=== PATIENT | female | born 1960 | race Caucasian/White ===

== ENCOUNTER → 2016-10-10 | Outpatient (CLI) | payer BC, MEDICARE ==
[2016-10-10 08:55] LABS: ABSOLUTE BASOPHILS # (AUTO) 0.1 10^3/uL (0.0-0.2); ABSOLUTE EOSINOPHILS # (AUTO) 0.1 10^3/uL (0.0-0.6); ABSOLUTE LYMPHOCYTES (AUTO) 2.2 10^3/uL (0.5-4.7); ABSOLUTE MONOCYTES (AUTO) 0.4 10^3/uL (0.1-1.4); ABSOLUTE NEUT (AUTO) 3.6 10^3/uL (1.7-8.2); EOSINOPHILS % (AUTO) 1.7 % (0-6); HEMATOCRIT 44.3 % (36.0-47.0); HEMOGLOBIN 15.2 g/dL (12.0-15.5); HGB HCT DIFFERENCE 1.3; MEAN CORPUSCULAR HEMOGLOBIN 32.1 pg (27.0-33.4); MEAN CORPUSCULAR HGB CONC 34.3 g/dL (32.0-36.0); MEAN CORPUSCULAR VOLUME 94 fl (80-97); RED BLOOD COUNT 4.73 10^6/uL (3.72-5.28); RED CELL DISTRIBUTION WIDTH 12.7 % (11.5-14.0); SEGMENTED NEUTROPHILS % (AUTO) 56.3 % (42-78); WHITE BLOOD COUNT 6.4 10^3/uL (4.0-10.5)
[2016-10-10 09:40] LABS: ALANINE AMINOTRANSFERASE 27 U/L (9-52); ALBUMIN 4.5 g/dL (3.5-5.0); ALKALINE PHOSPHATASE 49 U/L (38-126); ANION GAP 11 (5-19); ASPARTATE AMINO TRANSFERASE 23 U/L (14-36); BILIRUBIN,DIRECT 0.2 mg/dL (0.0-0.4); BILIRUBIN,TOTAL 0.7 mg/dL (0.2-1.3); BLOOD UREA NITROGEN 21 mg/dL (7-20); CARBON DIOXIDE 27 mmol/L (22-30); CHLORIDE 103 mmol/L (98-107); CREATININE RESULT 0.87 mg/dL (0.52-1.25); GLUCOSE 76 mg/dL (75-110); POTASSIUM 3.9 mmol/L (3.6-5.0); SODIUM 140.9 mmol/L (137-145); TOTAL PROTEIN 7.4 g/dL (6.3-8.2)
== END ==
LOC: OD 08:01
PROVIDERS: ATTEND Internal Medicine Medical Oncology
DX: C50.919 Malignant neoplasm of unspecified site of unspecified female breast (principal)
CPT/HCPCS: 36415; 80053; 85025

== ENCOUNTER → 2017-10-11 | Outpatient (CLI) | payer BC, MEDICARE ==
[2017-10-11 18:02] LABS: ABSOLUTE EOSINOPHILS # (AUTO) 0.1 10^3/uL (0.0-0.6); ABSOLUTE LYMPHOCYTES (AUTO) 3.1 10^3/uL (0.5-4.7); ABSOLUTE MONOCYTES (AUTO) 0.5 10^3/uL (0.1-1.4); ABSOLUTE NEUT (AUTO) 3.9 10^3/uL (1.7-8.2); BASOPHILS % (AUTO) 0.6 % (0-2); EOSINOPHILS % (AUTO) 0.9 % (0-6); HEMATOCRIT 41.7 % (36.0-47.0); HEMOGLOBIN 14.5 g/dL (12.0-15.5); LYMPHOCYTES % (AUTO) 41.2 % (13-45); MEAN CORPUSCULAR HGB CONC 34.7 g/dL (32.0-36.0); MEAN CORPUSCULAR VOLUME 92 fl (80-97); PLATELET COUNT 243 10^3/uL (150-450); RED BLOOD COUNT 4.52 10^6/uL (3.72-5.28); RED CELL DISTRIBUTION WIDTH 13.4 % (11.5-14.0); SEGMENTED NEUTROPHILS % (AUTO) 51.3 % (42-78); TOTAL CELLS COUNTED % (AUTO) 100 %; WHITE BLOOD COUNT 7.5 10^3/uL (4.0-10.5)
[2017-10-11 18:30] LABS: ALANINE AMINOTRANSFERASE 24 U/L (9-52); ALBUMIN 4.3 g/dL (3.5-5.0); ALKALINE PHOSPHATASE 43 U/L (38-126); ANION GAP 12 (5-19); ASPARTATE AMINO TRANSFERASE 22 U/L (14-36); BILIRUBIN,DIRECT 0.2 mg/dL (0.0-0.4); BILIRUBIN,TOTAL 0.4 mg/dL (0.2-1.3); BLOOD UREA NITROGEN 22 mg/dL (7-20); CALCIUM 9.7 mg/dL (8.4-10.2); CARBON DIOXIDE 28 mmol/L (22-30); CHLORIDE 102 mmol/L (98-107); GLUCOSE 82 mg/dL (75-110); POTASSIUM 3.8 mmol/L (3.6-5.0); SODIUM 141.6 mmol/L (137-145)
== END ==
LOC: OD 16:49
PROVIDERS: ATTEND Internal Medicine Medical Oncology
DX: C50.919 Malignant neoplasm of unspecified site of unspecified female breast (principal)
CPT/HCPCS: 36415; 80053; 85025

== ENCOUNTER → 2017-12-17 | Outpatient (CLI) | payer BC, MEDICARE ==
--- NOTE | 2017-12-17 14:37 | RADIOLOGY REPORT (SQ) ---
EXAM DESCRIPTION: FOOT RIGHT COMPLETE COMPLETED DATE/TIME: 12/17/2017 2:10 pm REASON FOR STUDY: STRESS FX COMPARISON: 11/20/2017 NUMBER OF VIEWS: Three views. TECHNIQUE: AP, lateral and oblique radiographic images acquired of the right foot. LIMITATIONS: None. FINDINGS: MINERALIZATION: Normal. BONES: Healing proximal phalanx fracture fourth toe with increasing callus formation. The fracture line is becoming less distinct. Position and alignment are satisfactory. Bipartite tibia sesamoid bone overlies the head of the first metatarsal bone, normal anatomic variant . JOINTS: No effusions. SOFT TISSUES: No soft tissue swelling. No foreign body. OTHER: No other significant finding. IMPRESSION: 1. Healing fracture proximal phalanx fourth toe. TECHNICAL DOCUMENTATION: JOB ID: [id number] [employer]- All Rights Reserved Reading location - IP/workstation name: [email or web address]
== END ==
LOC: OD 13:54
PROVIDERS: ATTEND Podiatrist Foot & Ankle Surgery
DX: M84.377D Stress fracture, right toe(s), subsequent encounter for fracture with routine healing (principal)

== ENCOUNTER → 2018-01-03 | Outpatient (CLI) | payer BC, MEDICARE ==
--- NOTE | 2018-01-03 13:58 | RADIOLOGY REPORT (SQ) ---
EXAM DESCRIPTION: RIBS LEFT W/O PA CHEST COMPLETED DATE/TIME: 01/03/2018 12:52 pm REASON FOR STUDY: PAIN IN LEFT INFRASCAPULAR AREA POSTERIORLY; PAIN WITH BREATHING COMPARISON: None. NUMBER OF VIEWS: Five views. TECHNIQUE: Images acquired of the left ribs in the area of focal concern. LIMITATIONS: None. FINDINGS: RIBS: No acute displaced fracture. No worrisome bone lesions. LUNGS: Limited exam. No obvious pneumothorax. No pleural effusion. OTHER: No other significant finding. IMPRESSION: NO ACUTE DISPLACED RIB FRACTURE. COMMENT: SITE OF TRAUMA/COMPLAINT MARKED/STAMP COMPLETED: YES. TECHNICAL DOCUMENTATION: JOB ID: [id number] [employer]- All Rights Reserved Reading location - IP/workstation name: [email or web address]
--- NOTE | 2018-01-03 14:01 | RADIOLOGY REPORT (SQ) ---
EXAM DESCRIPTION: CHEST PA/LATERAL COMPLETED DATE/TIME: 01/03/2018 12:52 pm REASON FOR STUDY: PAIN IN LEFT INFRASCAPULAR AREA POSTERIORLY; PAIN WITH BREATHING COMPARISON: None. EXAM PARAMETERS: NUMBER OF VIEWS: two views TECHNIQUE: Digital Frontal and Lateral radiographic views of the chest acquired. RADIATION DOSE: NA LIMITATIONS: none FINDINGS: LUNGS AND PLEURA: No opacities, masses or pneumothorax. No pleural effusion. MEDIASTINUM AND HILAR STRUCTURES: No masses or contour abnormalities. HEART AND VASCULAR STRUCTURES: Heart normal size. No evidence for failure. BONES: No acute findings. HARDWARE: None in the chest. OTHER: Right mastectomy. IMPRESSION: NO SIGNIFICANT RADIOGRAPHIC FINDING IN THE CHEST. TECHNICAL DOCUMENTATION: JOB ID: [id number] [employer]- All Rights Reserved Reading location - IP/workstation name: [email or web address]
== END ==
LOC: OD 12:15
PROVIDERS: ATTEND Internal Medicine
DX: R07.1 Chest pain on breathing (principal)
CPT/HCPCS: 71046

== ENCOUNTER 2019-03-03 22:21 | Observation (INO) | payer BC, MEDICARE ==
[2019-03-03] MEDS ORDERED: MORPHINE SULFATE 10 MG/ML INJ IV ONE (22:39)
[2019-03-03] MEDS ORDERED: ONDANSETRON HCL INJ/PF 4 MG/2 ML SDV IV ONE (22:40)
[2019-03-03 22:57] LABS: INTERNATIONAL RATION (INR) 0.92; PROTHROMBIN TIME 12.3 SEC (11.4-15.4)
[2019-03-03 22:58] LABS: PARTIAL THROMBOPLASTIN TIME 24.4 SEC (23.5-35.8)
[2019-03-03] MEDS ORDERED: NORMAL SALINE 500 ML IV ONE (22:58)
[2019-03-03 22:59] LABS: ABSOLUTE LYMPHOCYTES (AUTO) 0.7 10^3/uL (0.5-4.7); ABSOLUTE MONOCYTES (AUTO) 0.4 10^3/uL (0.1-1.4); ABSOLUTE NEUT (AUTO) 2.4 10^3/uL (1.7-8.2); BASOPHILS % (AUTO) 0.8 % (0-2); EOSINOPHILS % (AUTO) 1.2 % (0-6); HEMATOCRIT 32.9 % (36.0-47.0); HEMOGLOBIN 11.6 g/dL (12.0-15.5); LYMPHOCYTES % (AUTO) 18.6 % (13-45); MEAN CORPUSCULAR HEMOGLOBIN 34.3 pg (27.0-33.4); MEAN CORPUSCULAR HGB CONC 35.3 g/dL (32.0-36.0); MEAN CORPUSCULAR VOLUME 97 fl (80-97); MONOCYTES % (AUTO) 10.3 % (3-13); PLATELET COUNT 166 10^3/uL (150-450); RED BLOOD COUNT 3.39 10^6/uL (3.72-5.28); SEGMENTED NEUTROPHILS % (AUTO) 69.1 % (42-78); TOTAL CELLS COUNTED % (AUTO) 100 %; WHITE BLOOD COUNT 3.5 10^3/uL (4.0-10.5)
[2019-03-03 23:07] LABS: ALBUMIN 3.9 g/dL (3.5-5.0); ALKALINE PHOSPHATASE 43 U/L (38-126); ANION GAP 9 (5-19); ASPARTATE AMINO TRANSFERASE 21 U/L (14-36); BILIRUBIN,DIRECT 0.1 mg/dL (0.0-0.4); BILIRUBIN,TOTAL 0.3 mg/dL (0.2-1.3); BLOOD UREA NITROGEN 25 mg/dL (7-20); CALCIUM 9.2 mg/dL (8.4-10.2); CARBON DIOXIDE 30 mmol/L (22-30); CHLORIDE 98 mmol/L (98-107); GLUCOSE 118 mg/dL (75-110); POTASSIUM 3.6 mmol/L (3.6-5.0); TOTAL PROTEIN 6.8 g/dL (6.3-8.2)
--- NOTE | 2019-03-03 23:11 | ER Document Report ---
ED General - General Chief Complaint: Nose Bleed Stated Complaint: NOSEBLEED Time Seen by Provider: 03/03/19 22:37 Primary Care Provider: JULES PRADO MD [Primary Care Provider] - Follow up as needed TRAVEL OUTSIDE OF THE [place] IN LAST 30 DAYS: No - HPI Notes: Patient is a 58-year-old female with a history of stage IV breast cancer, currently on chemotherapy, who presents to the emergency department for evaluation. She is been having frequent nosebleeds, she states has had about 17 nosebleeds in the last week. She is now waiting to see ENT. It was believed that this is because of 1 of her medications, so this was discontinued. The patient is not on any blood thinners. She denies any trauma to the area. She was taking Ibrance, but this was discontinued secondary to her nosebleeds. - Related Data Allergies/Adverse Reactions: Latex, Natural Rubber Allergy (Verified 08/10/15 15:48) acetaminophen [From Percocet] Adverse Reaction (Intermediate, Verified 08/03/15 07:21) oxycodone HCl [From Percocet] Adverse Reaction (Intermediate, Verified 08/03/15 07:21) IV contrast Allergy (Severe, Uncoded 08/12/15 08:42) Anaphylactoid Home Medications: Potassium twice a day, valsartan/HCTZ 160 mg / 12-1/2 mg daily, letrozole 2-1/2 mg daily, multivitamin Past Medical History - General Information source: Patient - Social History Smoking Status: Current Every Day Smoker Family History: Reviewed & Not Pertinent Patient has suicidal ideation: No Patient has homicidal ideation: No - Past Medical History Cardiac Medical History: Reports: Hx Hypertension Denies: Hx Coronary Artery Disease, Hx Heart Attack Pulmonary Medical History: Reports: Hx Pneumonia Denies: Hx Asthma, Hx Bronchitis, Hx COPD Neurological Medical History: Denies: Hx Cerebrovascular Accident, Hx Seizures Malignancy Medical History: Reports: Hx Breast Cancer - Stage IV, with metastasis to the lung and lymph nodes Musculoskeletal Medical History: Denies Hx Arthritis Past Surgical History: Reports: Hx Mastectomy. Denies: Hx Hysterectomy, Hx Pacemaker - Immunizations Hx Diphtheria, Pertussis, Tetanus Vaccination: Yes Hx Pneumococcal Vaccination: 12/16/08 Review of Systems - Review of Systems Constitutional: No symptoms reported EENT: See HPI Cardiovascular: No symptoms reported Respiratory: No symptoms reported Gastrointestinal: No symptoms reported Genitourinary: No symptoms reported Musculoskeletal: No symptoms reported Skin: No symptoms reported Neurological/Psychological: No symptoms reported Physical Exam - Vital signs Vitals: Resp Pulse Ox 19 84 L 03/03/19 22:51 03/03/19 22:51 - Notes Notes: This is a pleasant 58-year-old female who appears her stated age in a mild amount of distress. She has a card dealer holding pressure of her bilateral nostrils. When this is removed, she bleeds from both sides. Head is normocephalic and atraumatic, pupils are equal round, reactive to light. Oral mucosa is moist. There is blood in the posterior pharynx. Heart is regular rate and rhythm, lungs are cautious bilaterally. Abdomen soft, nontender, normoactive bowel sounds. Skin is warm and dry. Course - Re-evaluation Re-evalutation: 03/03/19 23:16 Patient presents to the emergency department for evaluation. Decision was made that she would require Rhino Rocket, posterior length. It was placed on the right, see separate procedure note. She tolerated this well. I did go ahead and administer morphine, there was concerned of the level of discomfort she would have with a second Rhino Rocket. After the administration of the morphi ne, patient appeared to have a vagal response. Her heart rate and blood pressure declined. Her heart rate was in the low 50s, blood pressure of 76 systolic. She was given IV fluids. She was not placed in a supine position as to avoid increasing pressure on her nosebleed. She had an improvement in her blood pressure to 110/94, heart rate in the 60s these. I did get at the second Rhino Rocket, which she tolerated well. A large clot from her posterior pharynx was expressed. Patient is currently stable, we will continue to monitor. 03/03/19 23:45 I went back and reevaluate the patient. She does have a small trickle of blood still in the posterior pharynx. I spoke with Dr. Cárdenas, who agrees that observation is appropriate. Awaiting phone call from medicine. 03/03/19 23:[address] Collins, who accepted the patient. - Vital Signs Vital signs: Temp Pulse Resp BP Pulse Ox 69 17 110/94 H 98 03/03/19 23:04 03/03/19 23:04 03/03/19 23:04 03/03/19 23:04 - Laboratory Result Diagrams: 03/03/19 22:35 03/03/19 22:35 Laboratory results interpreted by me: 03/03/19 03/03/19 22:35 22:35 WBC 3.5 L RBC 3.39 L Hgb 11.6 L Hct 32.9 L MCH 34.3 H RDW 17.0 H BUN 25 H Est GFR (MDRD) Non-Af 55 L Glucose 118 H Procedures - Nosebleed Procedure Bilateral Location: Posterior Supplies used: Rhinorocket Notes: Patient presented to the emergency department for evaluation of bilateral nosebleed. Decision was made to place a Rhino Rocket's bilaterally. The Rhino Rocket was soaked in sterile water, then placed into the right nostril, advanced slowly. The balloon was inflated with 8 cc of air, patient tolerated this well. Several minutes later, bleeding continued on the other side, the procedure was repeated on the left. Patient tolerated this well. Critical Care Note - Critical Care Note Total time excluding time spent on procedures (mins): 20 Discharge - Discharge Clinical Impression: Posterior epistaxis Condition: Stable Disposition: ADMITTED OBSERVATION Admitting Provider: Dennis (Hospitalist) Unit Admitted: Telemetry Referrals: JULES PRADO MD [Primary Care Provider] - Follow up as needed
[2019-03-03] MEDS ORDERED: IPRATROPIUM/ALBUTEROL 0.5-2.5 MG/3 ML AMPUL NEB PRN (23:59)
[2019-03-03] MEDS ORDERED: ONDANSETRON HCL INJ/PF 4 MG/2 ML SDV IV PRN (23:59)
[2019-03-04] MEDS: OXYMETAZOLINE HCL 0.05% NASAL SPRAY 15 ML BOTTLE NASL SCH ×3 (00:36→22:44)
[2019-03-04] MEDS: ACETAMINOPHEN 325 MG TABLET PO PRN ×2 (00:42→10:16)
--- NOTE | 2019-03-04 04:43 | PDOC H&P ---
History of Present Illness Admission Date/PCP: 03/04/19 00:25 JULES PRADO MD Patient complains of: Nosebleed History of Present Illness: ANIKET PITTMAN is a 58 year old female with a past medical history of stage IV breast cancer with mets to lung status post chemotherapy and radiation who presents with recurrent nosebleeds. Patient ports 17 nosebleeds in the last week pending ENT evaluation. She reports her nosebleeds were thought likely secondary to letrozole versus Ibrance. She denies trauma or exceptional Dehumidified air. In the emergency room she is found to have epistasis requiring Afrin, bilateral nasal tamponade and a reduced hemoglobin of 11.7. ENT is consulted recommending observation and evaluation. She is referred to the hospitalist for admission. Past Medical History Cardiac Medical History: Reports: Hypertension Denies: Coronary Artery Disease, Myocardial Infarction Pulmonary Medical History: Reports: Pneumonia Denies: Asthma, Bronchitis, Chronic Obstructive Pulmonary Disease (COPD) EENT Medical History: Reports: Nose - Recent onset of recurrent epistasis Neurological Medical History: Reports: None Denies: Seizures Endocrine Medical History: Reports: None Malignancy Medical History: Reports: Breast Cancer - Stage IV, with metastasis to the lung and lymph nodes GI Medical History: Reports: None Musculoskeltal Medical History: Denies: Arthritis Skin Medical History: Reports: None Psychiatric Medical History: Reports: Tobacco Dependency Hematology: Reports: Anemia Past Surgical History Past Surgical History: Reports: Mastectomy Denies: Hysterectomy, Pacemaker Social History Information Source: Patient, [facility] Records Lives with: Family Smoking Status: Current Every Day Smoker Frequency of Alcohol Use: Occasional Hx Recreational Drug Use: No Hx Prescription Drug Abuse: No - Advance Directive Resuscitation Status: Full Code Family History Family History: Hypertension Parental Family History Reviewed: Yes Children Family History Reviewed: Yes Sibling(s) Family History Reviewed.: Yes Medication/Allergy Home Medications: Loratadine [Claritin 10 mg Tablet] 10 mg PO ASDIR PRN 08/03/15 Multivit-Min/Iron/Folic Acid/K [Multi For Her Softgel] 1 each PO DAILY 08/03/15 Potassium Chloride 10 meq PO DAILY 08/03/15 Valsartan/Hydrochlorothiazide [Valsartan-Hctz 160-12.5 mg Tab] 1 each PO DAILY 08/03/15 Allergies/Adverse Reactions: Latex, Natural Rubber Allergy (Verified 08/10/15 15:48) acetaminophen [From Percocet] Adverse Reaction (Intermediate, Verified 08/03/15 07:21) oxycodone HCl [From Percocet] Adverse Reaction (Intermediate, Verified 08/03/15 07:21) IV contrast Allergy (Severe, Uncoded 08/12/15 08:42) Anaphylactoid Review of Systems Constitutional: ABSENT: chills, fever(s), headache(s), weight gain, weight loss Eyes: ABSENT: visual disturbances Ears: ABSENT: hearing changes Cardiovascular: ABSENT: chest pain, dyspnea on exertion, edema, orthropnea, palpitations Respiratory: ABSENT: cough, hemoptysis Gastrointestinal: ABSENT: abdominal pain, constipation, diarrhea, hematemesis, hematochezia, nausea, vomiting Genitourinary: ABSENT: dysuria, hematuria Musculoskeletal: ABSENT: joint swelling Integumentary: ABSENT: rash, wounds Neurological: ABSENT: abnormal gait, abnormal speech, confusion, dizziness, focal weakness, syncope Psychiatric: ABSENT: anxiety, depression, homidical ideation, suicidal ideation Endocrine: ABSENT: cold intolerance, heat intolerance, polydipsia, polyuria Hematologic/Lymphatic: ABSENT: easy bleeding, easy bruising Physical Exam Vital Signs: Temp Pulse Resp BP Pulse Ox 98.6 F 69 13 155/98 H 98 03/04/19 03:00 03/03/19 23:04 03/04/19 03:01 03/04/19 03:00 03/04/19 03:01 Intake & Output 03/02/19 03/03/19 03/04/19 11:59 11:59 11:59 Intake Total 500 Balance 500 Weight 59.7 kg General appearance: PRESENT: cooperative, mild distress, thin, well-developed, well-nourished Head exam: PRESENT: atraumatic, normocephalic Eye exam: PRESENT: conjunctiva pink, EOMI, PERRLA. 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 ABSENT: rales, rhonchi, wheezes Cardiovascular exam: PRESENT: RRR. ABSENT: diastolic murmur, rubs, systolic murmur Pulses: PRESENT: normal dorsalis pedis pul Vascular exam: PRESENT: normal capillary refill GI/Abdominal exam: PRESENT: normal bowel sounds, soft. ABSENT: distended, guarding, mass, organolmegaly, rebound, tenderness Rectal exam: PRESENT: deferred Extremities exam: PRESENT: full ROM. ABSENT: calf tenderness, clubbing, pedal edema Neurological exam: PRESENT: alert, awake, oriented to person, oriented to place, oriented to time, oriented to situation, CN II-XII grossly intact. ABSENT: motor sensory deficit Psychiatric exam: PRESENT: appropriate affect, normal mood. ABSENT: homicidal ideation, suicidal ideation Skin exam: PRESENT: dry, intact, warm. ABSENT: cyanosis, rash Results Laboratory Results: 03/03/19 22:35 03/03/19 22:35 03/03/19 03/03/19 03/03/19 22:35 22:35 22:35 WBC 3.5 L RBC 3.39 L Hgb 11.6 L Hct 32.9 L MCV 97 MCH 34.3 H MCHC 35.3 RDW 17.0 H Plt Count 166 Seg Neutrophils % 69.1 Sodium 137.3 Potassium 3.6 Chloride 98 Carbon Dioxide 30 Anion Gap 9 BUN 25 H Creatinine 1.02 Est GFR ( Amer) > 60 Glucose 118 H Calcium 9.2 Total Bilirubin 0.3 AST 21 Alkaline Phosphatase 43 Total Protein 6.8 Albumin 3.9 Blood Type A POSITIVE Antibody Screen NEGATIVE Assessment and Plan - Diagnosis (1) Anemia Is this a current diagnosis for this admission?: Yes Plan: Evidence for acute hemorrhagic source. Follow-up ENT consult and CBC. (2) Breast cancer Is this a current diagnosis for this admission?: Yes Plan: Follow-up outpatient oncology (3) Posterior epistaxis Is this a current diagnosis for this admission?: Yes Plan: Nasal tamponade, Afrin, follow-up ENT consult and CBC. - Time Time Spent with patient: 15-24 minutes - Inpatient Certification Medical Necessity: Need Close Monitoring Due to Risk of Patient Decompensation
[2019-03-04 04:52] LABS: ABSOLUTE LYMPHOCYTES (AUTO) 0.4 10^3/uL (0.5-4.7); ABSOLUTE MONOCYTES (AUTO) 0.3 10^3/uL (0.1-1.4); ABSOLUTE NEUT (AUTO) 2.7 10^3/uL (1.7-8.2); BASOPHILS % (AUTO) 0.6 % (0-2); EOSINOPHILS % (AUTO) 0.2 % (0-6); HEMATOCRIT 30.7 % (36.0-47.0); HEMOGLOBIN 10.8 g/dL (12.0-15.5); LYMPHOCYTES % (AUTO) 11.5 % (13-45); MEAN CORPUSCULAR HEMOGLOBIN 34.5 pg (27.0-33.4); MEAN CORPUSCULAR HGB CONC 35.2 g/dL (32.0-36.0); MEAN CORPUSCULAR VOLUME 98 fl (80-97); PLATELET COUNT 167 10^3/uL (150-450); RED BLOOD COUNT 3.14 10^6/uL (3.72-5.28); RED CELL DISTRIBUTION WIDTH 16.9 % (11.5-14.0); SEGMENTED NEUTROPHILS % (AUTO) 79.7 % (42-78); TOTAL CELLS COUNTED % (AUTO) 100 %; WHITE BLOOD COUNT 3.4 10^3/uL (4.0-10.5)
[2019-03-04 05:09] LABS: ANION GAP 11 (5-19); BLOOD UREA NITROGEN 29 mg/dL (7-20); CALCIUM 9.4 mg/dL (8.4-10.2); CARBON DIOXIDE 28 mmol/L (22-30); CHLORIDE 100 mmol/L (98-107); GLUCOSE 132 mg/dL (75-110); POTASSIUM 3.8 mmol/L (3.6-5.0)
[2019-03-04] MEDS: HEPARIN SOD (PORCINE) 5,000 UNIT/ML 1 ML VIAL SUBCUT SCH ×3 (06:19→22:05)
[2019-03-04 11:24] LABS: HEMATOCRIT 30.8 % (36.0-47.0); HEMOGLOBIN 10.8 g/dL (12.0-15.5); MEAN CORPUSCULAR HEMOGLOBIN 34.4 pg (27.0-33.4); MEAN CORPUSCULAR HGB CONC 35.1 g/dL (32.0-36.0); MEAN CORPUSCULAR VOLUME 98 fl (80-97); PLATELET COUNT 166 10^3/uL (150-450); RED BLOOD COUNT 3.14 10^6/uL (3.72-5.28); RED CELL DISTRIBUTION WIDTH 17.1 % (11.5-14.0); WHITE BLOOD COUNT 3.3 10^3/uL (4.0-10.5)
[2019-03-05] MEDS: HEPARIN SOD (PORCINE) 5,000 UNIT/ML 1 ML VIAL SUBCUT SCH (05:12)
[2019-03-05 08:55] LABS: PROTHROMBIN TIME 13.2 SEC (11.4-15.4)
[2019-03-05] MEDS: OXYMETAZOLINE HCL 0.05% NASAL SPRAY 15 ML BOTTLE NASL SCH (09:16)
[2019-03-05 11:40] VITALS: BP 159/91
--- NOTE | 2019-03-05 16:48 | PDOC DISCHARGE SUMMARY ---
Impression - Admit/DC Date/PCP Admission Date/Primary Care Provider: 03/04/19 00:25 JULES PRADO MD Discharge Date: 03/05/19 - Discharge Diagnosis (1) Posterior epistaxis Is this a current diagnosis for this admission?: Yes - Additional Information Resuscitation Status: Full Code Discharge Diet: Regular Discharge Activity: Activity As Tolerated Referrals: JULES PRADO MD [Primary Care Provider] - 03/12/19 2:00 pm Home Medications: Letrozole [Femara 2.5 mg Tablet] 2.5 mg PO DAILY 03/04/19 Multivitamin [Multiple Vitamins] 1 tab PO DAILY 03/04/19 Potassium Chloride [Klor-Con M10] 10 meq PO BID 03/04/19 Valsartan/Hydrochlorothiazide [Diovan Hct 160-12.5 mg Tab] 1 tab PO DAILY 03/04/19 History of Present Illiness History of Present Illness: ANIKET PITTMAN is a 58 year old female with a past medical history of stage IV breast cancer with mets to lung status post chemotherapy and radiation who presents with recurrent nosebleeds. Patient ports 17 nosebleeds in the last week pending ENT evaluation. She reports her nosebleeds were thought likely secondary to letrozole versus Ibrance. She denies trauma or exceptional Dehumidified air. In the emergency room she is found to have epistasis requi ring Afrin, bilateral nasal tamponade and a reduced hemoglobin of 11.7. ENT is consulted recommending observation and evaluation. She is referred to the hospitalist for admission. Hospital Course Hospital Course: The overnight hospitalist to admit her was told that she should be kept for observation as recommended by ENT. When I spoke to ENT this morning, he told me that he had recommended that the patient be sent home and follow-up in the office in 3 to 5 days and to leave the Rhino Rockets in place. The patient has not had any further bleeding episodes and her vital signs been stable. She has follow-up with ENT tomorrow. I have discharged her home on her usual medications with instructions to leave the devices in place until she can be evaluated in the office by ENT tomorrow. She was discharged in stable condition. Physical Exam Vital Signs: Temp Pulse Resp BP Pulse Ox 98.1 F 73 20 159/91 H 95 03/05/19 11:38 03/05/19 11:38 03/05/19 11:38 03/05/19 11:38 03/05/19 11:38 Intake & Output 03/04/19 03/05/19 03/06/19 06:59 06:59 06:59 Intake Total 500 260 600 Balance 500 260 600 Weight 59.7 kg 58.4 kg General appearance: PRESENT: no acute distress, cooperative Respiratory exam: PRESENT: clear to auscultation albin, symmetrical, unlabored. ABSENT: accessory muscle use, chest wall tenderness, crackles, prolonged expiratory phas, rhonchi, tachypnea, wheezes Cardiovascular exam: PRESENT: RRR, +S1, +S2 Pulses: PRESENT: normal carotid pulses Vascular exam: PRESENT: normal capillary refill GI/Abdominal exam: PRESENT: normal bowel sounds, soft. ABSENT: distended, guarding, rebound, tenderness Extremities exam: ABSENT: clubbing, pedal edema Musculoskeletal exam: PRESENT: normal inspection. ABSENT: deformity Neurological exam: PRESENT: alert, awake, oriented to person, oriented to place, oriented to situation Psychiatric exam: PRESENT: appropriate affect, normal mood Skin exam: PRESENT: dry, warm Results Laboratory Results: WBC 3.3 10^3/uL (4.0-10.5) L 03/04/19 10:58 RBC 3.14 10^6/uL (3.72-5.28) L 03/04/19 10:58 Hgb 10.8 g/dL (12.0-15.5) L 03/04/19 10:58 Hct 30.8 % (36.0-47.0) L 03/04/19 10:58 MCV 98 fl (80-97) H 03/04/19 10:58 MCH 34.4 pg (27.0-33.4) H 03/04/19 10:58 MCHC 35.1 g/dL (32.0-36.0) 03/04/19 10:58 RDW 17.1 % (11.5-14.0) H 03/04/19 10:58 Plt Count 166 10^3/uL (150-450) 03/04/19 10:58 Lymph % (Auto) 11.5 % (13-45) L 03/04/19 04:03 Mayes % (Auto) 8.0 % (3-13) 03/04/19 04:03 Eos % (Auto) 0.2 % (0-6) 03/04/19 04:03 Baso % (Auto) 0.6 % (0-2) 03/04/19 04:03 Absolute Neuts (auto) 2.7 10^3/uL (1.7-8.2) 03/04/19 04:03 Absolute Lymphs (auto) 0.4 10^3/uL (0.5-4.7) L 03/04/19 04:03 Absolute Monos (auto) 0.3 10^3/uL (0.1-1.4) 03/04/19 04:03 Absolute Eos (auto) 0.0 10^3/uL (0.0-0.6) 03/04/19 04:03 Absolute Basos (auto) 0.0 10^3/uL (0.0-0.2) 03/04/19 04:03 Seg Neutrophils % 79.7 % (42-78) H 03/04/19 04:03 PT 13.2 SEC (11.4-15.4) 03/05/19 07:55 INR 1.00 03/05/19 07:55 INR (Anticoag Therapy) Cancelled 03/05/19 06:10 APTT 24.4 SEC (23.5-35.8) 03/03/19 22:35 Sodium 138.5 mmol/L (137-145) 03/04/19 04:03 Potassium 3.8 mmol/L (3.6-5.0) 03/04/19 04:03 Chloride 100 mmol/L (98-107) 03/04/19 04:03 Carbon Dioxide 28 mmol/L (22-30) 03/04/19 04:03 Anion Gap 11 (5-19) 03/04/19 04:03 BUN 29 mg/dL (7-20) H 03/04/19 04:03 Creatinine 0.82 mg/dL (0.52-1.25) 03/04/19 04:03 Est GFR ( Amer) > 60 (>60) 03/04/19 04:03 Est GFR (MDRD) Non-Af > 60 (>60) 03/04/19 04:03 Glucose 132 mg/dL (75-110) H 03/04/19 04:03 Calcium 9.4 mg/dL (8.4-10.2) 03/04/19 04:03 Total Bilirubin 0.3 mg/dL (0.2-1.3) 03/03/19 22:35 Direct Bilirubin 0.1 mg/dL (0.0-0.4) 03/03/19 22:35 Neonat Total Bilirubin Not Reportable 03/03/19 22:35 Neonat Direct Bilirubin Not Reportable 03/03/19 22:35 Neonat Indirect Bili Not Reportable 03/03/19 22:35 AST 21 U/L (14-36) 03/03/19 22:35 ALT 12 U/L (<35) 03/03/19 22:35 Alkaline Phosphatase 43 U/L (38-126) 03/03/19 22:35 Total Protein 6.8 g/dL (6.3-8.2) 03/03/19 22:35 Albumin 3.9 g/dL (3.5-5.0) 03/03/19 22:35 Blood Type A POSITIVE 03/03/19 22:35 Antibody Screen NEGATIVE 03/03/19 22:35 Plan Time Spent: Greater than 30 Minutes Stroke Is this a Stroke Patient?: No Acute Heart Failure - Is this a Heart Failure Patient?: No
== END 2019-03-05 12:44 | disposition home or self-care (01) ==
LOC: ER 22:21 → EH 03-04 00:25 → 4S 03-04 16:54
PROVIDERS: ADMIT Internal Medicine; ATTEND Internal Medicine
DX: R04.0 Epistaxis (principal); D62 Acute posthemorrhagic anemia; C50.919 Malignant neoplasm of unspecified site of unspecified female breast; C78.00 Secondary malignant neoplasm of unspecified lung; C77.9 Secondary and unspecified malignant neoplasm of lymph node, unspecified; F17.200 Nicotine dependence, unspecified, uncomplicated; I10 Essential (primary) hypertension; Z79.899 Other long term (current) drug therapy; Z92.3 Personal history of irradiation
CPT/HCPCS: 30905; 99284; 96361; 96374; 96375; 86900; 86901; 36415 ×3; 86850; 85025 ×2; 85610 ×2; 85730; 80048; 80053; G0378 ×3; J1644 ×2; J2270; J3490; J2405; J7040